=== PATIENT | female | born 1980 | race Caucasian/White ===

== ENCOUNTER 2017-07-26 13:05 | Emergency (ER) | payer MEDICAID ==
[~2017-07-26] VITALS: Ht 157.5 cm; Wt 70.3 kg
[2017-07-26 13:19] VITALS: Ht 157.5 cm; Wt 70.3 kg
[2017-07-26 15:48] VITALS: BP 120/74
== END 2017-07-26 15:48 | disposition home or self-care (01) ==
LOC: ED 13:05
DX: R51 Headache (principal); R11.0 Nausea; R42 Dizziness and giddiness
CPT/HCPCS: 82962; J1200; J1885; J2765